=== PATIENT | male | born 1935 | race Caucasian/White ===

== ENCOUNTER 2017-03-03 11:43 | Day surgery (SDC) | payer OTHER, MEDICAID ==
[2017-03-03] MEDS ORDERED: NS 1000 ML 1,000 ML ONE (11:58)
[2017-03-03] MEDS ORDERED: DIPRIVAN VIAL 10 ML ONE (12:26)
[2017-03-03] MEDS ORDERED: ZOFRAN INJ 4 MG VIAL ONE (12:40)
[2017-03-03 15:16] VITALS: BP 120/62
== END 2017-03-03 13:05 | disposition home or self-care (01) ==
LOC: SURG1 11:43
PROVIDERS: ATTEND Internal Medicine Gastroenterology
PROC: 0DB68ZX Excision of Stomach, Via Natural or Artificial Opening Endoscopic, Diagnostic (ICD-10-PCS; principal; 2017-03-03 16:30)
PROC: 0DJ08ZZ Inspection of Upper Intestinal Tract, Via Natural or Artificial Opening Endoscopic (ICD-10-PCS; principal; 2017-03-03 16:30)
PROC: 0D757ZZ Dilation of Esophagus, Via Natural or Artificial Opening (ICD-10-PCS; principal; 2017-03-03 16:30)
DX: R13.19 Other dysphagia (principal); R10.13 Epigastric pain; K21.9 Gastro-esophageal reflux disease without esophagitis; K92.2 Gastrointestinal hemorrhage, unspecified; K22.2 Esophageal obstruction; D64.89 Other specified anemias; T18.198A Other foreign object in esophagus causing other injury, initial encounter; X58.XXXA Exposure to other specified factors, initial encounter
CPT/HCPCS: 85025; 99100; A4217; J2405; J3490

== ENCOUNTER → 2017-11-03 | Outpatient (CLI) | payer OTHER, MEDICAID ==
--- NOTE | 2017-11-03 14:56 | RAD ---
HISTORY: Anorexia, weight loss Study: Flat and upright abdomen, PA chest Comparison: None Findings: The abdominal gas pattern is nonspecific and nonobstructive. No pneumoperitoneum is identified. There is a large amount of stool throughout the colon. There is a caval filter present. No abnormal masses or significant abnormal calcifications are identified. The heart is mildly enlarged. No congestive h eart failure is noted. The lung ye are clear. 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 IMPRESSION: No acute abdominal abnormality Mild cardiomegaly without congestive heart failure Constipation Reported By:
== END ==
LOC: RAD 12:21
PROVIDERS: ATTEND Obstetrics & Gynecology Obstetrics
DX: R63.0 Anorexia (principal); K59.09 Other constipation
CPT/HCPCS: 74022